=== PATIENT | male | born 1985 | race Caucasian/White ===

== ENCOUNTER 2017-05-14 21:14 | Emergency (ER) | payer SELFPAY ==
[~2017-05-14] VITALS: Ht 180.3 cm; Wt 121.7 kg
[2017-05-14 21:41] VITALS: Ht 180.3 cm; Wt 121.7 kg
[2017-05-15 00:14] VITALS: BP 140/89
== END 2017-05-15 00:14 | disposition home or self-care (01) ==
LOC: ED 21:14
DX: S91.212A Laceration without foreign body of left great toe with damage to nail, initial encounter (principal); W22.8XXA Striking against or struck by other objects, initial encounter; Y93.89 Activity, other specified; Y92.89 Other specified places as the place of occurrence of the external cause; Y99.8 Other external cause status
CPT/HCPCS: 90715; J2001; Q0092